=== PATIENT | female | born 2000 | race Hispanic/Latino ===

== ENCOUNTER 2020-12-15 22:40 | Emergency (ER) | payer OTHER, SELFPAY ==
[2020-12-15] MEDS ORDERED: Albuterol 200 PUFF (6.7GM INHALER) ONE (23:16)
[2020-12-15] MEDS ORDERED: predniSONE 20 MG TAB ONE (23:29)
[2020-12-16] MEDS ORDERED: Acetaminophen 500 MG TAB ONE (00:33)
[2020-12-16] MEDS ORDERED: Ibuprofen 200 MG TAB ONE (00:33)
[2020-12-16 16:41] LABS: SARS-CoV-2 PCR by NAA Not Detected (NotDetected)
== END 2020-12-16 00:38 | disposition home or self-care (01) ==
LOC: ERS 22:40
DX: R05 Cough (principal); R51.9 Headache, unspecified; R50.9 Fever, unspecified; R06.00 Dyspnea, unspecified; Z20.822 Contact with and (suspected) exposure to COVID-19; J45.909 Unspecified asthma, uncomplicated
CPT/HCPCS: 71045; 87635; J7512; U0003; U0005